=== PATIENT | male | born 1940 | race Caucasian/White ===

== ENCOUNTER 2018-09-30 17:52 | Emergency (ER) | payer MEDICAID, MEDICARE ==
[~2018-09-30] VITALS: Ht 177.8 cm; Wt 60.7 kg
[2018-09-30 17:53] VITALS: BP 143/64
== END 2018-09-30 18:08 | disposition home or self-care (01) ==
LOC: ED 18:02
DX: E03.4 Atrophy of thyroid (acquired) (principal); Z76.0 Encounter for issue of repeat prescription; E03.9 Hypothyroidism, unspecified; E78.00 Pure hypercholesterolemia, unspecified
CPT/HCPCS: 99283

== ENCOUNTER 2018-12-22 21:22 | Emergency (ER) | payer MEDICARE ==
[~2018-12-22] VITALS: Ht 177.8 cm; Wt 62.2 kg
[2018-12-22 21:26] VITALS: BP 137/75
[2018-12-22] MEDS ORDERED: DIPHENHYDRAMINE 25 MG CAPSULE ONE (22:20)
--- NOTE | 2018-12-22 22:25 | NUR ---
PT MEDICATED ORDERED.
[2018-12-22] MEDS ORDERED: DIPHENHYDRAMINE 25 MG CAPSULE PO ONE (22:30)
== END 2018-12-22 23:04 | disposition home or self-care (01) ==
LOC: ED 23:00
DX: T78.49XA Other allergy, initial encounter (principal); R21 Rash and other nonspecific skin eruption; H57.89 Other specified disorders of eye and adnexa; X58.XXXA Exposure to other specified factors, initial encounter; E03.9 Hypothyroidism, unspecified; E78.00 Pure hypercholesterolemia, unspecified
CPT/HCPCS: 99283; J7512; Q0163

== ENCOUNTER 2019-08-06 11:55 | Outpatient (CLI) | payer MEDICARE ==
[2019-08-06 12:37] LABS: ALANINE AMINOTRANSFERASE 27 U/L (12-78); ALBUMIN 3.6 g/dL (3.4-5.0); ANION GAP 5 mmol/L (5-15); CALCIUM 8.6 mg/dL (8.5-10.1); CHLORIDE 106 mmol/L (98-107); CREATININE 1.44 mg/dL (0.7-1.3)
[2019-08-06 12:47] LABS: ALKALINE PHOSPHATASE 99 U/L (45-117); BILIRUBIN,TOTAL 0.6 mg/dL (0.2-1.0); FREE T4 (FREE THYROXINE) 1.15 ng/dL (0.76-1.46); TOTAL PROTEIN 7.2 g/dL (6.4-8.2)
== END 2019-08-06 23:59 | disposition home or self-care (01) ==
LOC: LAB 11:55
PROVIDERS: ATTEND Family Medicine
DX: Z13.1 Encounter for screening for diabetes mellitus (principal); E44.0 Moderate protein-calorie malnutrition; E03.9 Hypothyroidism, unspecified; E78.00 Pure hypercholesterolemia, unspecified; Z79.899 Other long term (current) drug therapy
CPT/HCPCS: 36415; 80053; 83036; 84439; 84443

== ENCOUNTER 2020-02-13 23:11 | Emergency (ER) | payer OTHER, MEDICAID ==
[~2020-02-13] VITALS: Ht 177.8 cm; Wt 63.4 kg
--- NOTE | 2020-02-14 01:19 | NUR ---
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
--- NOTE | 2020-02-14 01:24 | NUR ---
PT REPORTS COMING IN FOR A SORE ON HIS RIGHT ANKLE AND FOOT. WHEN UNWRAPPED THERE ARE MULTIPLE CIRCULAR ABRASIONS/ULCERS. PT SKIN IS EXTREMELY FLAKELY AND LOWER EXTREMITY COLOR IS DARKENED BELOW KNEE. PT REPORTED TO PROVIDER AND LARA THAT HE HAD A FALL ONTO THE RIGHT HIP A WHILE BACK AND SINCE THEN HAS LEFT LOWER BACK/KIDNEY PAIN. PT AMBULATES HUNCHED TO THE RIGHT, STATING HE COULD STAND ALL THE UP BUT IT HURTS SO HE AVOIDS IT. PT NAD, RESTING ON GURNEY, SUPPLIED WARM BLANKETS FOR COMFORT, CALL LIGHT ON LAP, BED IN [facility], [facility]. ERP AT BS FOR EVAL AND POC.
--- NOTE | 2020-02-14 01:27 | NUR ---
PT PLACED ON SPO2/BP MONITORING
[2020-02-14] MEDS ORDERED: LEVO125T5 PO (01:33)
[2020-02-14] MEDS ORDERED: ROSU10TA2 PO (01:33)
[2020-02-14 01:49] LABS: BASOPHILS % (AUTO) 1 % (0-1); EOSINOPHILS % (AUTO) 7 % (1-7); LYMPHOCYTES % (AUTO) 19 % (22-44); MEAN CORPUSCULAR HEMOGLOBIN 32.5 pg (27.5-34.5); MEAN CORPUSCULAR HGB CONC 33.4 g/dL (33.2-36.2); MEAN PLATELET VOLUME 8.4 fL (7.4-10.4); MONOCYTES % (AUTO) 10 % (2-9); NEUTROPHILS % (AUTO) 63 % (42-75); PLATELET COUNT 210 x10^3/uL (130-400); RED BLOOD COUNT 4.21 x10^6/uL (4.38-5.82); RED CELL DISTRIBUTION WIDTH 13.2 % (9.4-14.8)
[2020-02-14 01:52] LABS: ALANINE AMINOTRANSFERASE 38 U/L (12-78); ALBUMIN 3.7 g/dL (3.4-5.0); CALCIUM 9.3 mg/dL (8.5-10.1); CREATININE 1.21 mg/dL (0.7-1.3)
[2020-02-14 01:54] LABS: MD NO
[2020-02-14 01:55] LABS: ALKALINE PHOSPHATASE 121 U/L (45-117); BILIRUBIN,TOTAL 0.3 mg/dL (0.2-1.0); TOTAL PROTEIN 7.3 g/dL (6.4-8.2)
[2020-02-14 02:10] LABS: ANION GAP 6 mmol/L (5-15); CHLORIDE 109 mmol/L (98-107)
[2020-02-14 02:20] LABS: MICROSCOPIC NOT IND
--- NOTE | 2020-02-14 02:23 | NUR ---
UA OBTAINED AND WALKED TO LAB, PT BACK TO [place], EMIL, APPEARS COMFORTABLE, DENIES ADDITIONAL NEEDS, WCTM. WAITING FOR RESULTS.
[2020-02-14 03:37] VITALS: BP 138/69
--- NOTE | 2020-02-14 03:38 | NUR ---
Patient given discharge instructions and they have confirmed that they understand the instructions. Patient ambulatory with steady gait. NAD, DENIES ADDITIONAL NEEDS, NO PERSONAL BELONGINGS LEFT IN ROOM AFTER DC.
== END 2020-02-14 04:03 | disposition home or self-care (01) ==
LOC: ED 02-14 02:51
DX: S39.012A Strain of muscle, fascia and tendon of lower back, initial encounter (principal); E03.9 Hypothyroidism, unspecified; E78.00 Pure hypercholesterolemia, unspecified; W06.XXXA Fall from bed, initial encounter; Y93.89 Activity, other specified; Y92.89 Other specified places as the place of occurrence of the external cause; Y99.8 Other external cause status
CPT/HCPCS: 36415; 72110; 80053; 81003; 85025; 99284

== ENCOUNTER 2020-03-18 09:11 | Outpatient (CLI) | payer MEDICARE, MEDICAID ==
[~2020-03-18 09:11] MED LIST: LEVO125T5 PO; ROSU10TA2 PO
== END 2020-03-18 23:59 | disposition home or self-care (01) ==
LOC: WOUND 09:11
PROVIDERS: ATTEND Internal Medicine
DX: I87.333 Chronic venous hypertension (idiopathic) with ulcer and inflammation of bilateral lower extremity (principal); L97.222 Non-pressure chronic ulcer of left calf with fat layer exposed; L97.212 Non-pressure chronic ulcer of right calf with fat layer exposed; E03.9 Hypothyroidism, unspecified; E78.00 Pure hypercholesterolemia, unspecified; E78.5 Hyperlipidemia, unspecified; I87.2 Venous insufficiency (chronic) (peripheral); M19.90 Unspecified osteoarthritis, unspecified site
CPT/HCPCS: 97597; 97598; G0463

== ENCOUNTER → 2020-03-23 | Outpatient (CLI) | payer MEDICARE, MEDICAID | END | disposition home or self-care (01) | LOC: WOUND 14:41 | PROVIDERS: ATTEND Internal Medicine | DX: I87.333 Chronic venous hypertension (idiopathic) with ulcer and inflammation of bilateral lower extremity (principal); L97.222 Non-pressure chronic ulcer of left calf with fat layer exposed; L97.212 Non-pressure chronic ulcer of right calf with fat layer exposed; E03.9 Hypothyroidism, unspecified; E78.00 Pure hypercholesterolemia, unspecified; E78.5 Hyperlipidemia, unspecified; I87.2 Venous insufficiency (chronic) (peripheral); L84 Corns and callosities; M19.90 Unspecified osteoarthritis, unspecified site; L89.610 Pressure ulcer of right heel, unstageable | CPT/HCPCS: 97597; 97598 ==

== ENCOUNTER → 2020-04-06 | Outpatient (CLI) | payer MEDICARE, MEDICAID | END | disposition home or self-care (01) | LOC: WOUND 13:57 | PROVIDERS: ATTEND Internal Medicine | DX: I87.333 Chronic venous hypertension (idiopathic) with ulcer and inflammation of bilateral lower extremity (principal); L97.821 Non-pressure chronic ulcer of other part of left lower leg limited to breakdown of skin; L97.222 Non-pressure chronic ulcer of left calf with fat layer exposed; L97.212 Non-pressure chronic ulcer of right calf with fat layer exposed; L89.610 Pressure ulcer of right heel, unstageable; E03.9 Hypothyroidism, unspecified; E78.00 Pure hypercholesterolemia, unspecified; E78.5 Hyperlipidemia, unspecified; L84 Corns and callosities; M19.90 Unspecified osteoarthritis, unspecified site | CPT/HCPCS: 97597 ==

== ENCOUNTER 2020-04-13 01:30 | Outpatient (CLI) | payer MEDICARE, MEDICAID | END 2020-04-13 23:59 | disposition home or self-care (01) | LOC: WOUND 01:30 | PROVIDERS: ATTEND Internal Medicine | DX: I87.333 Chronic venous hypertension (idiopathic) with ulcer and inflammation of bilateral lower extremity (principal); L97.821 Non-pressure chronic ulcer of other part of left lower leg limited to breakdown of skin; L97.222 Non-pressure chronic ulcer of left calf with fat layer exposed; L97.212 Non-pressure chronic ulcer of right calf with fat layer exposed; L89.610 Pressure ulcer of right heel, unstageable; E03.9 Hypothyroidism, unspecified; E78.00 Pure hypercholesterolemia, unspecified; E78.5 Hyperlipidemia, unspecified; L84 Corns and callosities; M19.90 Unspecified osteoarthritis, unspecified site | CPT/HCPCS: 97597 ==

== ENCOUNTER → 2020-04-20 | Outpatient (CLI) | payer MEDICARE, MEDICAID | END | disposition home or self-care (01) | LOC: WOUND 15:00 | PROVIDERS: ATTEND Internal Medicine | DX: I87.333 Chronic venous hypertension (idiopathic) with ulcer and inflammation of bilateral lower extremity (principal); L97.222 Non-pressure chronic ulcer of left calf with fat layer exposed; L97.212 Non-pressure chronic ulcer of right calf with fat layer exposed; L97.821 Non-pressure chronic ulcer of other part of left lower leg limited to breakdown of skin; L89.610 Pressure ulcer of right heel, unstageable; S91.302A Unspecified open wound, left foot, initial encounter; E03.9 Hypothyroidism, unspecified; E78.00 Pure hypercholesterolemia, unspecified; E78.5 Hyperlipidemia, unspecified; L84 Corns and callosities; M19.90 Unspecified osteoarthritis, unspecified site; X58.XXXA Exposure to other specified factors, initial encounter; Y93.89 Activity, other specified; Y92.89 Other specified places as the place of occurrence of the external cause; Y99.8 Other external cause status | CPT/HCPCS: 97597 ==

== ENCOUNTER 2020-04-27 14:47 | Outpatient (CLI) | payer MEDICARE, MEDICAID | END 2020-04-27 23:59 | disposition home or self-care (01) | LOC: WOUND 14:47 | PROVIDERS: ATTEND Internal Medicine | DX: I87.333 Chronic venous hypertension (idiopathic) with ulcer and inflammation of bilateral lower extremity (principal); L97.821 Non-pressure chronic ulcer of other part of left lower leg limited to breakdown of skin; L97.222 Non-pressure chronic ulcer of left calf with fat layer exposed; L97.212 Non-pressure chronic ulcer of right calf with fat layer exposed; S91.302D Unspecified open wound, left foot, subsequent encounter; E03.9 Hypothyroidism, unspecified; E78.00 Pure hypercholesterolemia, unspecified; E78.5 Hyperlipidemia, unspecified; L84 Corns and callosities; M19.90 Unspecified osteoarthritis, unspecified site; X58.XXXD Exposure to other specified factors, subsequent encounter | CPT/HCPCS: 29580 ==

== ENCOUNTER → 2020-05-04 | Outpatient (CLI) | payer MEDICARE, MEDICAID | END | disposition home or self-care (01) | LOC: WOUND 10:19 | PROVIDERS: ATTEND Internal Medicine | DX: I87.333 Chronic venous hypertension (idiopathic) with ulcer and inflammation of bilateral lower extremity (principal); L97.821 Non-pressure chronic ulcer of other part of left lower leg limited to breakdown of skin; L97.222 Non-pressure chronic ulcer of left calf with fat layer exposed; L97.212 Non-pressure chronic ulcer of right calf with fat layer exposed; E03.9 Hypothyroidism, unspecified; E78.00 Pure hypercholesterolemia, unspecified; E78.5 Hyperlipidemia, unspecified; L84 Corns and callosities; M19.90 Unspecified osteoarthritis, unspecified site | CPT/HCPCS: 97597 ==

== ENCOUNTER → 2020-05-25 | Outpatient (CLI) | payer MEDICARE, MEDICAID | END | disposition home or self-care (01) | LOC: WOUND 14:14 | PROVIDERS: ATTEND Internal Medicine | DX: I87.333 Chronic venous hypertension (idiopathic) with ulcer and inflammation of bilateral lower extremity (principal); L97.821 Non-pressure chronic ulcer of other part of left lower leg limited to breakdown of skin; L97.222 Non-pressure chronic ulcer of left calf with fat layer exposed; L97.212 Non-pressure chronic ulcer of right calf with fat layer exposed; L97.521 Non-pressure chronic ulcer of other part of left foot limited to breakdown of skin; E03.9 Hypothyroidism, unspecified; E78.00 Pure hypercholesterolemia, unspecified; E78.5 Hyperlipidemia, unspecified; L84 Corns and callosities; M19.90 Unspecified osteoarthritis, unspecified site | CPT/HCPCS: 97597; 97598 ==

== ENCOUNTER → 2020-06-08 | Outpatient (CLI) | payer MEDICARE, MEDICAID | END | disposition home or self-care (01) | LOC: WOUND 14:30 | PROVIDERS: ATTEND Internal Medicine | DX: I87.333 Chronic venous hypertension (idiopathic) with ulcer and inflammation of bilateral lower extremity (principal); L97.811 Non-pressure chronic ulcer of other part of right lower leg limited to breakdown of skin; L97.521 Non-pressure chronic ulcer of other part of left foot limited to breakdown of skin; L97.222 Non-pressure chronic ulcer of left calf with fat layer exposed; L97.212 Non-pressure chronic ulcer of right calf with fat layer exposed; E03.9 Hypothyroidism, unspecified; E78.00 Pure hypercholesterolemia, unspecified; E78.5 Hyperlipidemia, unspecified; L84 Corns and callosities; M19.90 Unspecified osteoarthritis, unspecified site | CPT/HCPCS: 97597 ==

== ENCOUNTER 2020-06-22 14:57 | Outpatient (CLI) | payer MEDICARE, MEDICAID | END 2020-06-22 23:59 | disposition home or self-care (01) | LOC: WOUND 14:57 | PROVIDERS: ATTEND Internal Medicine | DX: I87.333 Chronic venous hypertension (idiopathic) with ulcer and inflammation of bilateral lower extremity (principal); L97.811 Non-pressure chronic ulcer of other part of right lower leg limited to breakdown of skin; L97.222 Non-pressure chronic ulcer of left calf with fat layer exposed; L97.212 Non-pressure chronic ulcer of right calf with fat layer exposed; E03.9 Hypothyroidism, unspecified; E78.00 Pure hypercholesterolemia, unspecified; E78.5 Hyperlipidemia, unspecified; L84 Corns and callosities; M19.90 Unspecified osteoarthritis, unspecified site | CPT/HCPCS: 29581; 97597 ==

== ENCOUNTER → 2020-07-06 | Outpatient (CLI) | payer MEDICARE, MEDICAID | END | disposition home or self-care (01) | LOC: WOUND 14:04 | PROVIDERS: ATTEND Internal Medicine | DX: I87.333 Chronic venous hypertension (idiopathic) with ulcer and inflammation of bilateral lower extremity (principal); L97.811 Non-pressure chronic ulcer of other part of right lower leg limited to breakdown of skin; L97.222 Non-pressure chronic ulcer of left calf with fat layer exposed; L97.212 Non-pressure chronic ulcer of right calf with fat layer exposed; E03.9 Hypothyroidism, unspecified; E78.00 Pure hypercholesterolemia, unspecified; E78.5 Hyperlipidemia, unspecified; L84 Corns and callosities; M19.90 Unspecified osteoarthritis, unspecified site | CPT/HCPCS: G0463 ==